=== PATIENT | male | born 1990 | race Caucasian/White ===

== ENCOUNTER 2016-10-14 19:42 | Emergency (ER) | payer BC ==
[2016-10-14 19:51] VITALS: BP 145/80
--- NOTE | 2016-10-14 20:23 | RAD ---
HISTORY: Left first digit trauma, dislocation COMPARISONS: None VIEWS: 4, Frontal, lateral, and oblique views of the first digit of the left hand FINDINGS: BONE DENSITY: Normal. BONES: There is a subacute appearing fracture of the base of the first metacarpal. JOINTS: There is no arthropathy. ALIGNMENT: There is subluxation at the first CMC joint SOFT TISSUES: Unremarkable. OTHER FINDINGS: None. IMPRESSION: SUBACUTE APPEARING FRACTURE OF THE BASE OF THE FIRST METACARPAL WITH SUBLUXATION AT THE FIRST CMC JOINT
[2016-10-14] MEDS ORDERED: HYDROcodone/ACETAMIN 5-325 MG* 1 TAB PO ONE (20:40)
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
== END 2016-10-14 20:49 | disposition home or self-care (01) ==
LOC: UCCORT 19:42
DX: S62.232A Other displaced fracture of base of first metacarpal bone, left hand, initial encounter for closed fracture (principal); X58.XXXA Exposure to other specified factors, initial encounter; Y93.89 Activity, other specified; Y92.9 Unspecified place or not applicable; F17.210 Nicotine dependence, cigarettes, uncomplicated
CPT/HCPCS: 99212; G0463

== ENCOUNTER 2016-10-21 09:16 | Day surgery (SDC) | payer BC ==
[2016-10-21] MEDS ORDERED: Ibuprofen TAB* 400 MG ONE (09:30)
[2016-10-21] MEDS ORDERED: Sodium Citrate/Citric Acid* 15 ML UDC ONE (09:31)
[2016-10-21] MEDS ORDERED: ceFAZolin 2 GM PREMIX(*) 2 GM/50 ML BAG IVPB ONE (09:31)
[2016-10-21] MEDS ORDERED: Bupivacaine 0.25% SDV* 30 ML ONE (11:12)
[2016-10-21] MEDS ORDERED: Lidocaine 2% PF * 5 ML VIAL ONE (11:18)
[2016-10-21] MEDS ORDERED: Propofol* 10 MG/ML 20 ML BTL IV PUSH ONE (11:18)
[2016-10-21] MEDS ORDERED: fentaNYL* 50 MCG/ML 2 ML VIAL (100 MCG VIAL) ONE ×2 (11:18→13:03)
[2016-10-21] MEDS ORDERED: HYDROcodone/ACETAMIN 5-325 MG* 1 TAB PO PRN (11:39)
[2016-10-21] MEDS ORDERED: DiMENhydriNATE IV* 50 MG/ML VIAL IV PUSH PRN (11:39)
[2016-10-21] MEDS ORDERED: Ondansetron INJ* 2 MG/ML VIAL IV PRN (11:39)
[2016-10-21] MEDS ORDERED: fentaNYL* 50 MCG/ML 2 ML VIAL (100 MCG VIAL) IV PRN (11:39)
[2016-10-21] MEDS ORDERED: Ondansetron INJ* 2 MG/ML VIAL ONE (14:04)
[2016-10-21] MEDS ORDERED: HYDROcodone/ACETAMIN 5-325 MG* 1 TAB ONE (14:18)
[2016-10-21 14:43] VITALS: BP 127/86
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
== END 2016-10-21 14:47 | disposition home or self-care (01) ==
LOC: OREAST 09:16
PROVIDERS: ATTEND Orthopaedic Surgery Hand Surgery
DX: S62.212A Bennett's fracture, left hand, initial encounter for closed fracture (principal); F17.210 Nicotine dependence, cigarettes, uncomplicated; F12.10 Cannabis abuse, uncomplicated; V28.0XXA Motorcycle driver injured in noncollision transport accident in nontraffic accident, initial encounter; Y92.89 Other specified places as the place of occurrence of the external cause
CPT/HCPCS: A9270-GY; C1713; C1776; J0690; J2405; J2704; J3010

== ENCOUNTER 2016-11-18 12:13 | Emergency (ER) | payer BC ==
[2016-11-18 12:32] VITALS: BP 110/72
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
--- NOTE | 2016-11-18 13:36 | RAD ---
INDICATION: Right elbow injury. TECHNIQUE: 4 views of the right elbow were obtained. FINDINGS: There is a fracture involving the lateral aspect of the radial head which extends to the articular surface. The fracture fragments are slightly distracted. No other fractures are seen. No joint effusion is noted. IMPRESSION: SLIGHTLY DISPLACED INTRA-ARTICULAR FRACTURE OF THE RADIAL HEAD.
== END 2016-11-18 13:48 | disposition home or self-care (01) ==
LOC: UCCORT 12:13
DX: M25.521 Pain in right elbow (principal); S52.121S Displaced fracture of head of right radius, sequela; V86.59XS Driver of other special all-terrain or other off-road motor vehicle injured in nontraffic accident, sequela; F17.210 Nicotine dependence, cigarettes, uncomplicated
CPT/HCPCS: 99211; G0463